=== PATIENT | male | born 1955 | race Caucasian/White ===

== ENCOUNTER 2023-01-16 12:18 | Emergency (ER) | payer MEDICAID ==
[~2023-01-16] VITALS: Ht 162.6 cm; Wt 104.3 kg
[2023-01-16 12:21] VITALS: BP 153/53; PULSE 68; RESP 16; TEMP 98.6; O2SAT 96
[2023-01-16] MEDS ORDERED: MORPHINE SULFATE 4 MG/ML SYR IVP ONE ×2 (12:50→15:45)
[2023-01-16 13:15] LABS: BASOPHILS % (AUTO) 0.9 % (0.0-2.0); EOSINOPHILS # (AUTO) 0.3 K/uL (0-0.4); EOSINOPHILS % (AUTO) 7.8 % (0.0-4.0); HEMATOCRIT 35.1 % (36-52); HEMOGLOBIN 11.5 g/dL (12.0-18.0); LYMPHOCYTES # (AUTO) 1.2 K/uL (2.0-11.5); LYMPHOCYTES % (AUTO) 30.7 % (20.5-51.1); MEAN CORPUSCULAR HEMOGLOBIN 31 pg (27-31); MEAN CORPUSCULAR HGB CONC 33 g/dL (33-37); MEAN CORPUSCULAR VOLUME 93.1 fL (80-94); MONOCYTES # (AUTO) 0.2 K/uL (0.8-1.0); MONOCYTES % (AUTO) 4.9 % (1.7-9.3); NEUTROPHILS # (AUTO) 2.1 K/uL (1.8-7.7); NEUTROPHILS % (AUTO) 55.7 % (42.2-75.2); PLATELET COUNT (AUTO) 82 K/uL (140-450); RED BLOOD CELL COUNT(AUTO) 3.77 MIL/uL (4.20-6.10); WHITE BLOOD COUNT (AUTO) 3.8 K/uL (4.8-10.8)
[2023-01-16 13:26] LABS: INR 1.05 (0.8-1.2); PARTIAL THROMBOPLASTIN TIME 22.3 secs (22-35.6)
[2023-01-16 13:31] LABS: ANION GAP 11.5 (8-16); CALCIUM 8.6 mg/dL (8.5-10.1); CREATININE 1.5 mg/dL (0.6-1.3); POTASSIUM 4.5 mmol/L (3.5-5.1)
[2023-01-16] MEDS ORDERED: NACL 0.9% 1,000 ML IV ONE (13:40)
[2023-01-16] MEDS ORDERED: ACET-8905 PO (15:23)
[2023-01-16 16:13] VITALS: BP 111/55; PULSE 74; RESP 12; TEMP 98.6; O2SAT 97
== END 2023-01-16 16:13 | disposition home or self-care (01) ==
LOC: MED 12:18
DX: M25.551 Pain in right hip (principal); D61.818 Other pancytopenia; E11.22 Type 2 diabetes mellitus with diabetic chronic kidney disease; I12.9 Hypertensive chronic kidney disease with stage 1 through stage 4 chronic kidney disease, or unspecified chronic kidney disease; N18.9 Chronic kidney disease, unspecified; Z86.73 Personal history of transient ischemic attack (TIA), and cerebral infarction without residual deficits; Z79.899 Other long term (current) drug therapy
CPT/HCPCS: 36415; 73706; 80048; 85025; 85610; 85730; 93971; 96361; 96374; 96376; 99285; J2270; J7030; Q0092; Q9967

== ENCOUNTER 2023-03-16 06:58 | Emergency (ER) | payer MEDICAID ==
[~2023-03-16] VITALS: Ht 160 cm; Wt 114.8 kg
[~2023-03-16 06:58] MED LIST: ACET-8905 PO
[2023-03-16 07:14] VITALS: BP 127/68; PULSE 95; RESP 20; TEMP 98.1; O2SAT 99
[2023-03-16 09:44] LABS: BASOPHILS # (AUTO) 0.1 K/uL (0.00-0.22); BASOPHILS % (AUTO) 0.9 % (0.0-2.0); EOSINOPHILS # (AUTO) 0.3 K/uL (0-0.4); EOSINOPHILS % (AUTO) 4.8 % (0.0-4.0); HEMATOCRIT 33.5 % (36-52); HEMOGLOBIN 11.2 g/dL (12.0-18.0); LYMPHOCYTES # (AUTO) 0.9 K/uL (2.0-11.5); LYMPHOCYTES % (AUTO) 15.8 % (20.5-51.1); MEAN CORPUSCULAR HEMOGLOBIN 32 pg (27-31); MEAN CORPUSCULAR HGB CONC 33 g/dL (33-37); MEAN CORPUSCULAR VOLUME 96.7 fL (80-94); MONOCYTES # (AUTO) 0.9 K/uL (0.8-1.0); MONOCYTES % (AUTO) 16.5 % (1.7-9.3); NEUTROPHILS # (AUTO) 3.4 K/uL (1.8-7.7); PLATELET COUNT (AUTO) 175 K/uL (140-450); RED BLOOD CELL COUNT(AUTO) 3.47 MIL/uL (4.20-6.10); WHITE BLOOD COUNT (AUTO) 5.4 K/uL (4.8-10.8)
[2023-03-16 10:34] LABS: ANION GAP 13.3 (8-16); CALCIUM 9.1 mg/dL (8.5-10.1); CREATININE 1.3 mg/dL (0.6-1.3); POTASSIUM 4.3 mmol/L (3.5-5.1)
[2023-03-16 11:00] VITALS: BP 136/81; PULSE 88; RESP 20; TEMP 98.1; O2SAT 96
[2023-03-16 11:00] LABS: BILIRUBIN,DIRECT 0.1 mg/dL (0.0-0.3); TOTAL BILIRUBIN 0.3 mg/dL (0.0-1.0); TOTAL PROTEIN, SERUM 7.2 g/dL (6.4-8.2)
[2023-03-16] MEDS ORDERED: KETOROLAC 60 MG/2 ML VIAL IM ONE (11:15)
[2023-03-16] MEDS ORDERED: ONDANSETRON 4 MG ODT PO ONE (11:15)
[2023-03-16] MEDS ORDERED: LOPE-289 PO (11:30)
[2023-03-16] MEDS ORDERED: CIPR500T4 PO (11:30)
[2023-03-16] MEDS ORDERED: ONDA8TAB87 PO (11:30)
[2023-03-16] MEDS ORDERED: IBUP-2213 PO (11:30)
[2023-03-16 12:46] LABS: FLU A ANTIGEN negative (NEGATIVE); FLU B ANTIGEN negative (NEGATIVE)
== END 2023-03-16 11:40 | disposition home or self-care (01) ==
LOC: MED 06:58
DX: R11.2 Nausea with vomiting, unspecified (principal); R19.7 Diarrhea, unspecified; R10.32 Left lower quadrant pain; R05.9 Cough, unspecified; M79.18 Myalgia, other site; Z20.822 Contact with and (suspected) exposure to COVID-19; E11.9 Type 2 diabetes mellitus without complications; I10 Essential (primary) hypertension; Z79.899 Other long term (current) drug therapy; Z79.1 Long term (current) use of non-steroidal anti-inflammatories (NSAID); Z79.2 Long term (current) use of antibiotics
CPT/HCPCS: 36415; 80048; 80076; 83690; 85025; 87426; 87804; 93005; 96372; 99284; J1885; Q0162

== ENCOUNTER 2024-01-04 07:34 | Day surgery (SDC) | payer OTHER ==
[~2024-01-04] VITALS: Ht 162.6 cm; Wt 111.1 kg
[~2024-01-04 07:34] MED LIST changes: +CIPR500T4 PO; +IBUP-2213 PO; +LOPE-289 PO; +ONDA8TAB87 PO
[2024-01-04] MEDS ORDERED: LIDOCAINE 2% 100 MG/5 ML UJET TP ONE (09:57)
[2024-01-04] MEDS ORDERED: fentaNYL citrate 0.05 MG/ML VIAL ONE (09:57)
[2024-01-04] MEDS: fentaNYL citrate 0.05 MG/ML VIAL IVP ONE (11:02)
== END 2024-01-04 12:58 | disposition home or self-care (01) ==
LOC: MDS 07:34 → MMU 07:37 → MDS 12:58
PROVIDERS: ATTEND Internal Medicine Gastroenterology
DX: R10.30 Lower abdominal pain, unspecified (principal); K57.32 Diverticulitis of large intestine without perforation or abscess without bleeding; K63.5 Polyp of colon; I10 Essential (primary) hypertension; E78.00 Pure hypercholesterolemia, unspecified; E03.9 Hypothyroidism, unspecified; K21.9 Gastro-esophageal reflux disease without esophagitis; Z79.899 Other long term (current) drug therapy
CPT/HCPCS: 45385; 82948; J3010